=== PATIENT | female | born 1995 | race Caucasian/White ===

== ENCOUNTER 2017-05-11 23:15 | Emergency (ER) | payer OTHER, BC ==
[~2017-05-11] VITALS: Ht 172.7 cm; Wt 61.2 kg
[2017-05-12] MEDS ORDERED: DIPHTH,PERTUSS(ACELL),TET TOX 0.5 ML DISP.SYRIN. VAX IM ONE (00:15)
[2017-05-12 00:18] VITALS: BP 133/63
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
[2017-05-12] MEDS ORDERED: IBUPROFEN 800 MG TABLET. PO ONE (01:00)
--- NOTE | 2017-05-12 07:45 | RAD ---
EXAM: Bilateral knees, 3 views. HISTORY: Pain. COMPARISON: None. FINDINGS: Frontal, lateral and oblique views of both knees are obtained. There is no fracture, dislocation or subluxation. There is no joint effusion. There is a small bone island within the proximal right tibial metadiaphysis. IMPRESSION: No acute osseous finding.
--- NOTE | 2017-05-12 07:49 | RAD ---
EXAM: Right hand, 3 views; right wrist, 3 views. HISTORY: Pain. COMPARISON: None. FINDINGS: Frontal, lateral and oblique views of the right hand and wrist are obtained. There is no fracture, dislocation or subluxation. There is a tiny ossicle or calcification along the dorsal aspect of the carpus, chronic in appearance. IMPRESSION: No acute osseous finding.
== END 2017-05-12 01:27 | disposition home or self-care (01) ==
LOC: ER 23:15
DX: S63.501A Unspecified sprain of right wrist, initial encounter (principal); S80.211A Abrasion, right knee, initial encounter; S80.212A Abrasion, left knee, initial encounter; V43.52XA Car driver injured in collision with other type car in traffic accident, initial encounter; Y93.I9 Activity, other involving external motion; Y92.410 Unspecified street and highway as the place of occurrence of the external cause; Y99.8 Other external cause status
CPT/HCPCS: 73110; 73130; 73564; 99284

== ENCOUNTER 2018-10-03 21:10 | Emergency (ER) | payer BC, OTHER ==
[~2018-10-03] VITALS: Ht 157.5 cm; Wt 74.4 kg
[2018-10-03 21:24] VITALS: BP 124/62
[2018-10-03] MEDS ORDERED: ALBUTEROL SULFATE 2.5 MG/3 ML NEBU. NEB ONE (21:45)
[2018-10-03] MEDS ORDERED: AZITHROMYCIN 250 MG TABLET. PO ONE (21:45)
--- NOTE | 2018-10-03 22:19 | PHYS DOC ---
Past Medical History Past Medical History: No Pertinent History Past Surgical History: No Surgical History Alcohol Use: None Drug Use: None Adult General Chief Complaint Chief Complaint: Congestion HPI HPI Patient is a 23 year old a who presents with nasal congestion rhinorrhea and cough. Patient also reports postnasal drip and sore throat. No fever chills, nausea vomiting or sweats. No shortness breath wheezing. Reports chest wall pain with cough. Denies history of asthma or chronic pulmonary disease[] Review of Systems Review of Systems ROS as per HPI. All other systems were reviewed and found to be within normal limits, except as documented in this note. Current Medications Current Medications Current Medications Medications (Trade) Dose Ordered Sig/Maria Isabel Start Time Stop Time Status Last Admin Dose Admin Albuterol Sulfate (Ventolin Neb Soln) 2.5 mg 1X ONCE 10/03/18 21:45 10/03/18 21:46 Cancel Azithromycin (Zithromax) 500 mg 1X ONCE 10/03/18 21:45 10/03/18 21:46 Cancel Allergies Allergies Allergies Coded Allergies Type Severity Reaction Last Updated Verified No Known Drug Allergies 05/12/17 No Physical Exam Physical Exam Constitutional: Well developed, well nourished, no acute distress, non-toxic appearance. [] HENT: Normocephalic, atraumatic, bilateral external ears normal, oropharynx moist, nose, congestion, and rhinorrhea, deviated septum to the right.. [] Eyes: PERRLA, EOMI, conjunctiva normal, no discharge. [] Neck: Normal range of motion, no tenderness, supple, no stridor. [] Cardiovascular:Heart rate regular rhythm, no murmur [] Lungs & Thorax: Bilateral breath sounds clear to auscultation [] Abdomen: Bowel sounds normal, soft, no tenderness, no masses, no pulsatile masses. [] Skin: Warm, dry, no erythema, no rash. [] Back: No tenderness, no CVA tenderness. [] Extremities: No tenderness, no cyanosis, no clubbing, ROM intact, no edema. [] Neurologic: Alert and oriented X 3, normal motor function, normal sensory function, no focal deficits noted. [] Psychologic: Affect normal, judgement normal, mood normal. [] Current Patient Data Vital Signs Vital Signs Date Time Temp Pulse Resp B/P (MAP) Pulse Ox O2 Delivery O2 Flow Rate FiO2 10/03/18 21:24 104 16 124/62 (82) 99 Room Air 10/03/18 21:15 98.2 98.2 EKG EKG [] Radiology/Procedures Radiology/Procedures [] Course & Med Decision Making Course & Med Decision Making Pertinent Labs and Imaging studies reviewed. (See chart for details) [rhinitis with postnasal drip and cough. Recommend decongestant] Dragon Disclaimer Dragon Disclaimer This electronic medical record was generated, in whole or in part, using a voice recognition dictation system. Departure Departure Impression: Primary Impression: Upper respiratory infection, acute Disposition: HOME, SELF-CARE Condition: GOOD Referrals: JEAN CLAUDE LUNA MD (PCP) Patient Instructions: Upper Respiratory Infection, Adult, [id number] Additional Instructions: Take Mucinex-D for his of congestion and take Profen as needed for chest wall pain. Follow-up with your PCP in 2-3 days for reevaluation. What CRISTAL SENA DO Oct 03, 2018 22:19
== END 2018-10-03 22:26 | disposition home or self-care (01) ==
LOC: ER 21:10
DX: J06.9 Acute upper respiratory infection, unspecified (principal); R09.82 Postnasal drip; J02.9 Acute pharyngitis, unspecified; R07.89 Other chest pain; J34.2 Deviated nasal septum
CPT/HCPCS: 99281

== ENCOUNTER 2019-08-14 21:04 | Emergency (ER) | payer BC ==
[~2019-08-14] VITALS: Ht 175.3 cm; Wt 65.1 kg
[2019-08-14 22:15] VITALS: BP 131/71
[2019-08-14] MEDS ORDERED: PANT40TA77 PO (22:43)
--- NOTE | 2019-08-14 22:43 | PHYS DOC ---
Past Medical History Past Medical History: No Pertinent History (ITZ BRYAN APRN) Past Surgical History: No Surgical History (ITZ BRYAN APRN) Smoking Status: Current Every Day Smoker Alcohol Use: Occasionally Drug Use: None (ITZ BRYAN APRN) Attending Signature I have participated in the care of this patient and I have reviewed and agree with all pertinent clinical information above including history, exam, and recommendations. (HARRY CHAIDEZ MD) Adult General Chief Complaint Chief Complaint: VAGINAL BLEEDING HPI HPI Patient is a 24 year old female who presents with vaginal bleeding that's been ongoing over the last day. The patient also states she's been having a lot of epigastric pain. Denies any right upper quadrant pain. Denies any other symptoms. Rates her pain as 4 out of 10 in severity and that she's been having a bit of a cough. The patient states that she is not currently on control. The patient states she is not breast feeding. Complete ROS were reviewed and found to be within normal limits, except as documented in the HPI (ITZ BRYAN APRN) Allergies Allergies Allergies Coded Allergies Type Severity Reaction Last Updated Verified No Known Drug Allergies 05/12/17 No (HARRY CHAIDEZ MD) Physical Exam Physical Exam Constitutional: Well developed, well nourished, no acute distress, non-toxic appearance. [] HENT: Normocephalic, atraumatic, bilateral external ears normal, oropharynx moist, no oral exudates, nose normal. [] Eyes: PERRLA, EOMI, conjunctiva normal, no discharge. [] Neck: Normal range of motion, no tenderness, supple, no stridor. [] Cardiovascular:Heart rate regular rhythm, no murmur [] Lungs & Thorax: Bilateral breath sounds clear to auscultation [] Abdomen: Bowel sounds normal, soft, mild epigastric tenderness, no masses, no pulsatile masses. [] Neurologic: Alert and oriented X 3, normal motor function, normal sensory function, no focal deficits noted. [] Psychologic: Affect normal, judgement normal, mood normal. [] (ITZ BRYAN APRN) Current Patient Data Vital Signs Vital Signs Date Time Temp Pulse Resp B/P (MAP) Pulse Ox O2 Delivery O2 Flow Rate FiO2 08/14/19 22:15 98.0 105 16 131/71 (91) 96 Room Air 98.0 (HARRY CHAIDEZ MD) EKG EKG [] (ITZ BRYAN APRN) Radiology/Procedures Radiology/Procedures [] (ITZ BRYAN APRN) Course & Med Decision Making Course & Med Decision Making Pertinent Labs and Imaging studies reviewed. (See chart for details) Patient likely is starting her period. Patient also is likely having GERD. P atient struggled with GERD during . Patient vitals are stable at this time. Patient denies any dizziness. (ITZ BRYAN APRN) Dragon Disclaimer Dragon Disclaimer This electronic medical record was generated, in whole or in part, using a voice recognition dictation system. (ITZ BRYAN APRN) Departure Departure Impression: Primary Impression: Vaginal bleeding Additional Impression: GERD (gastroesophageal reflux disease) Disposition: HOME, SELF-CARE Condition: STABLE Referrals: KASH ALVARADO (PCP) Patient Instructions: Diet for Gastroesophageal Reflux Disease, Adult Additional Instructions: Thank you for visiting [facility]. We appreciate you trusting us with your care. If any additional problems come up don't hesitate to return to visit us. Please follow up with your primary care provider so they can plan additional care if needed and know about the problem that you had. If symptoms worsen come back to the Emergency Department. Any concerning symptoms that start such as chest pain, shortness of air, weakness or numbness on one side of the body, running high fevers or any other concerning symptoms return to the ER. Please fill your medications at any pharmacy and follow the prescription instructions. Scripts Pantoprazole Sodium (PROTONIX ) 40 Mg Tablet. 40 MG PO DAILYAC for GERD for 30 Days, #30 TAB Prov: ITZ BRYAN APRN 08/14/19 Problem Qualifiers Additional Impression: GERD (gastroesophageal reflux disease) Esophagitis presence: with esophagitis Qualified Codes: K21.0 - Gastro- esophageal reflux disease with esophagitis ITZ BRYAN APRN Aug 14, 2019 22:43 HARRY CHAIDEZ MD Aug 15, 2019 02:20
== END 2019-08-14 22:35 | disposition home or self-care (01) ==
LOC: ER 21:04
DX: K21.9 Gastro-esophageal reflux disease without esophagitis (principal); N93.9 Abnormal uterine and vaginal bleeding, unspecified; R10.13 Epigastric pain; F17.200 Nicotine dependence, unspecified, uncomplicated
CPT/HCPCS: 99283